=== PATIENT | female | born 1955 | race Caucasian/White ===

== ENCOUNTER 2018-11-14 14:18 | Emergency (ER) | payer OTHER ==
[~2018-11-14] VITALS: Ht 160 cm; Wt 67.1 kg
--- NOTE | 2018-11-14 14:32 | NUR ---
BIB SELF W C/O HEAD, AND NECK PAIN WHILE AT PT. PT APPEARS ANXIOUS. ALSO C/O HBP , TO ER BED 12, HOOKED TO MONITOR, AWAITING MD BEE
--- NOTE | 2018-11-14 14:39 | NUR ---
DR. RAMIREZ AT BEDSIDE FOR EVAL.
--- NOTE | 2018-11-14 14:46 | NUR ---
CALLED CODE STROKE
--- NOTE | 2018-11-14 14:47 | NUR ---
WHEELED OUT FOR CT SCAN
[2018-11-14] MEDS ORDERED: CT SWABBABLE VALVE TRANS SET 1 EA INFUS.SET MC ONE (14:49)
[2018-11-14] MEDS ORDERED: IOHEXOL-350 100 ML VIAL IV ONE (14:49)
[2018-11-14] MEDS ORDERED: IV NS 0.9% 250 ML IV ONE (14:49)
[2018-11-14 15:08] LABS: BASOPHILS % (AUTO) 0.5 % (0.0-2.0); EOSINOPHILS % (AUTO) 0.6 % (0.0-6.0); HEMATOCRIT 38 % (33-45); HEMOGLOBIN 12.6 g/dL (11.5-14.8); LYMPHOCYTES # (AUTO) 2.1 /CMM (0.8-4.8); LYMPHOCYTES % (AUTO) 32.2 % (20.0-44.0); MEAN CORPUSCULAR HGB CONC 33 g/dl (31.0-36.0); MEAN CORPUSCULAR VOLUME 71 fL (82-100); MONOCYTES # (AUTO) 0.5 /CMM (0.1-1.30); MONOCYTES % (AUTO) 7.2 % (2.0-12.0); NEUTROPHILS # (AUTO) 3.9 /CMM (1.8-8.9); NEUTROPHILS % (AUTO) 59.5 % (43.0-81.0); PLATELET COUNT (AUTO) 239 /CMM (150-450); RED BLOOD CELL COUNT(AUTO) 5.39 MIL/uL (4.0-5.2); WHITE BLOOD COUNT (AUTO) 6.5 K/uL (4.3-11.0)
[2018-11-14 15:16] LABS: CALCIUM, SERUM 9.5 mg/dL (8.5-10.1); CARBON DIOXIDE 24 mmol/L (21-32); CHLORIDE 104 mmol/L (98-107); CREATININE 0.6 mg/dL (0.6-1.3); GLUCOSE 119 mg/dL (74-106); POTASSIUM 3.3 mmol/L (3.5-5.1); SODIUM SERUM 138 mmol/L (136-145); UREA NITROGEN, BLOOD 12 mg/dL (7-18)
--- NOTE | 2018-11-14 15:21 | NUR ---
tele stroke - neuro - paged Dr. Clancy
[2018-11-14 15:27] LABS: CHOLESTEROL 221 mg/dL (<200); HDL CHOLESTEROL 101 mg/dL (40-60); LDL 109 mg/dL (0-99); TRIGLYCERIDES 90 mg/dL (30-150)
[2018-11-14] MEDS ORDERED: MORPHINE SULFATE INJ 4 MG/ML DISP.SYRIN ONE (15:32)
[2018-11-14] MEDS ORDERED: ONDANSETRON HCL/PF 4 MG/2 ML VIAL ONE (15:32)
--- NOTE | 2018-11-14 15:34 | NUR ---
PT BEING EVALUATED BY DR TAMIKA CARVAJAL VIA TELESTROKE MONITOR
--- NOTE | 2018-11-14 15:44 | NUR ---
PT PREFFERED TO HAVE MRI. REFUSED TPA TREATMENT. MD LIZ
[2018-11-14] MEDS: MORPHINE SULFATE INJ 2 MG/ML DISP.SYRIN IV ONE (15:47)
[2018-11-14] MEDS: ONDANSETRON HCL/PF 4 MG/2 ML VIAL IVP ONE (15:48)
[2018-11-14] MEDS ORDERED: LORAZEPAM 1 MG TABLET ONE ×2 (15:51→18:15)
[2018-11-14] MEDS ORDERED: IBUPROFEN 600 MG TABLET PO ONE (15:52)
[2018-11-14] MEDS: IBUPROFEN 600 MG TABLET PO ONE (16:00)
[2018-11-14] MEDS: LORAZEPAM 1 MG TABLET PO ONE ×2 (16:00→18:18)
--- NOTE | 2018-11-14 16:14 | NUR ---
CALLED [facility] SPOKE WITH FAYE. TRANSPORT IS BEING ORDERED, UNKNOWN ETA.
--- NOTE | 2018-11-14 16:58 | NUR ---
RECEIVED A CALL FROM [facility]; PT IS GOING TO [facility] PANCHAL CALL REPORT # [phone] ALS TRANSPORT 1800 HEALTH CARE TECHNICIAN TIME.
[2018-11-14 17:11] VITALS: BP 119/62
--- NOTE | 2018-11-14 17:11 | NUR ---
REPORT GIVEN TO ARABELLA SHAW OF [facility]
--- NOTE | 2018-11-14 18:10 | NUR ---
Patient discharged [facility] in stable condition. Written and verbal after care instructions given. Patient verbalizes understanding of instruction. Pt will be transferred to [facility] ED.
[2018-11-14] MEDS ORDERED: HYDROCODONE/APAP 5/325MG 1 EACH TABLET ONE (18:15)
[2018-11-14] MEDS: HYDROCODONE/APAP 5/325MG 1 EACH TABLET PO ONE (18:18)
== END 2018-11-14 19:02 | disposition short-term general hospital (02) ==
LOC: ER 14:20
DX: I16.0 Hypertensive urgency (principal); R51 Headache; R53.1 Weakness; F41.9 Anxiety disorder, unspecified; G89.29 Other chronic pain; R00.2 Palpitations
CPT/HCPCS: 36415; 70450-TC; 70496-TC; 70498-TC; 71045-TC; 80048-TC; 80061-TC; 82962-TC; 84484-TC; 85025-TC; 85730-TC; J2270; J2405; J7050; Q9967